=== PATIENT | female | born 1950 | race Caucasian/White ===

== ENCOUNTER → 2016-11-07 | Outpatient (CLI) | payer OTHER, BC ==
--- NOTE | 2016-11-07 12:45 | MAMMOGRAPHY REPORT ---
BILATERAL SCREENING MAMMOGRAM: 11/07/2016 CLINICAL HISTORY: Routine screening. Patient has no complaints. TECHNIQUE: Bilateral CC and MLO views were obtained. The exam was also evaluated with a computer a ided detection system (CAD). COMPARISON: Comparison is made to exams dated: 11/05/2015 mammogram, 08/29/2014 mammogram, 08/12/2013 mammogram, 08/01/2013 mammogram - [facility], 11/13/2011 mammogram, and 01/07/2010 m ammogram. BREAST COMPOSITION: The tissue of both breasts is almost entirely fatty. FINDINGS: No suspicious masses, calcifications, or areas of architectural distortion are noted in e ither breast. There has been no significant interval change compared to prior exams. Small benign a ppearing mass in the right lower inner quadrant is stable dating back to at least the 2009 exam. Sc attered benign-appearing right breast calcifications are stable. IMPRESSION: ACR BI-RADS CATEGORY 2: BENIGN There is no mammographic evidence of malignancy. A 1 year screening mammogram is recommended. The p atient will receive written notification of the results. Approximately 10% of breast cancers are not detected with mammography. A negative mammographic repor t should not delay biopsy if a clinically suggestive mass is present. Lisa Giron M.D. /:11/07/2016 12:18:41 Traveling Secretary: Briseida Grubbs [facility] letter sent: Normal 1/2 BI-RADS Code: ACR BI-RADS Category 2: Benign
== END | disposition home or self-care (01) ==
LOC: C.MAMM 10:23
PROVIDERS: ATTEND Obstetrics & Gynecology
DX: Z12.31 Encounter for screening mammogram for malignant neoplasm of breast (principal)

== ENCOUNTER → 2017-01-05 | Outpatient (CLI) | payer OTHER, BC ==
[2017-01-05 14:28] LABS: BASO % 0.9 %; BASO ABS # 0.04 K/uL (0-0.2); COMPLETE YES; EOS % 4.5 %; HEMATOCRIT 42.1 % (37-47); IG% 0.2 %; LYMPH % 24.6 %; LYMPH ABS # 1.04 K/uL (1.2-3.4); MEAN CELL VOLUME 91.7 fL (80-100); MEAN CORPUSCULAR HEMOGLOBIN 30.3 pg (25-34); MEAN PLATELET VOLUME 9.2 fL (7.4-10.4); MONO % 8.7 %; NEUT % 61.1 %; PLATELET COUNT 365 K/uL (130-400); RED BLOOD COUNT 4.59 M/uL (4.2-5.4); WHITE BLOOD COUNT 4.23 K/uL (4.8-10.8)
[2017-01-05 14:44] LABS: ALB/GLOB RATIO 1.1 (0.9-2); ALKALINE PHOSPHATASE 102 U/L (45-117); ALT/SGPT 22 U/L (12-78); AST/SGOT 13 U/L (15-37); BLOOD UREA NITROGEN 12 mg/dl (7-18); BUN/CREATININE RATIO 16.2 (10-20); CALCIUM 9.1 mg/dl (8.5-10.1); CARBON DIOXIDE 29 mmol/L (21-32); CHLORIDE 108 mmol/L (98-107); CREATININE 0.74 mg/dl (0.60-1.20); GLUCOSE 89 mg/dl (70-99); SODIUM 143 mmol/L (136-145)
[2017-01-05 14:55] LABS: CHOLESTEROL 188 mg/dl (0-200); CHOLESTEROL/HDL RATIO 2.5; HDL CHOLESTEROL 76 mg/dl; LDL CHOLESTEROL CALCULATED 84 mg/dl; TRIGLYCERIDES 138 mg/dl (0-150); VERY LOW DENSITY LIPOPROT CALC 28 mg/dl
== END ==
LOC: C.LABBC 09:57
PROVIDERS: ATTEND Internal Medicine Geriatric Medicine
DX: M85.80 Other specified disorders of bone density and structure, unspecified site (principal); E03.9 Hypothyroidism, unspecified; L80 Vitiligo; M19.90 Unspecified osteoarthritis, unspecified site; M54.16 Radiculopathy, lumbar region; E55.9 Vitamin D deficiency, unspecified

== ENCOUNTER → 2017-05-20 | Outpatient (CLI) | payer OTHER, BC | END | disposition home or self-care (01) | LOC: C.PAPS 17:18 | PROVIDERS: ATTEND Internal Medicine Geriatric Medicine | DX: Z01.419 Encounter for gynecological examination (general) (routine) without abnormal findings (principal) ==

== ENCOUNTER → 2017-07-06 | Outpatient (CLI) | payer OTHER, BC ==
--- NOTE | 2017-07-06 08:29 | DIAGNOSTIC IMAGING REPORT ---
AP PELVIS AND RIGHT HIP 2 VIEWS CLINICAL HISTORY: Right hip pain COMPARISON: None. DISCUSSION: The superior margin of the iliac crest is not included on the film. No fractures are visualized. There are no erosive or destructive changes. There are mild osteoarthritic changes. IMPRESSION: Mild osteoarthritic change. No fractures identified. No destructive lesions are evident. Electronically signed by: Yann Anand M.D. 07/06/2017 8:27 AM Dictated Date/Time: 07/06/2017 8:26 AM
== END | disposition home or self-care (01) ==
LOC: C.RDSM 08:09
PROVIDERS: ATTEND Physician Assistant
DX: M25.551 Pain in right hip (principal)

== ENCOUNTER → 2017-08-20 | Outpatient (CLI) | payer OTHER, BC ==
--- NOTE | 2017-08-20 15:22 | DIAGNOSTIC IMAGING REPORT ---
RIGHT KNEE 4 VIEWS; LEFT KNEE 4 VIEWS CLINICAL HISTORY: Bilateral knee pain. COMPARISON STUDY: Radiographs of both knees dated 02/09/2014. FINDINGS: An AP standing view of both knees, a tunnel view of both knees, a sunrise view of both knees, and lateral views of the right and left knee are obtained. The skeletal structures are osteopenic. No fracture is seen. Right knee: There is mild to moderate tricompartmental degenerative joint space narrowing, greatest at the patellofemoral articulation. There is bony sclerosis noted within the lateral aspect of the patellofemoral articulation. There are small patellar enthesophytes as well as large marginal osteophytes. No evidence of osteochondral defect is seen on the tunnel view. There is no joint effusion. The overlying soft tissues are within normal limits. Left knee: There is mild to moderate tricompartmental degenerative joint space narrowing, greatest at the patellofemoral articulation. There are large marginal osteophytes as well as tiny patellar enthesophytes. No osteochondral lesion is suggested on the tunnel image. No joint effusion is seen. The overlying soft tissues are within normal limits. IMPRESSION: Osteopenia and arthritic change as above. No acute bony abnormality is seen in either knee. Electronically signed by: Derek Astorga M.D. 08/20/2017 3:20 PM Dictated Date/Time: 08/20/2017 3:18 PM
== END | disposition home or self-care (01) ==
LOC: C.RDSM 14:49
PROVIDERS: ATTEND Physician Assistant
DX: M25.561 Pain in right knee (principal)

== ENCOUNTER 2020-06-29 06:45 | Observation (INO) ==
--- NOTE | 2020-05-25 15:59 | PAT Medication Instructions ---
Medication Instructions Date of Service May 25, 2020 Home Medications cholecalciferol (vitamin D3) 50 mcg (2,000 unit) capsule 2,000 unit PO PM clobetasol 0.05 % topical cream 1 applic TOP UD PRN levothyroxine 88 mcg tablet 88 mcg PO QAM lutein 10 mg tablet 20 mg PO PM ibuprofen 400 mg PO TID PRN ASK your surgeon for instructions ibuprofen 400 mg PO TID PRN STOP taking 2 weeks before surgery lutein 10 mg tablet 20 mg PO PM STOP taking 24 hours before surgery clobetasol 0.05 % topical cream 1 applic TOP UD PRN DO NOT take the morning of surgery cholecalciferol (vitamin D3) 50 mcg (2,000 unit) capsule 2,000 unit PO PM Take morning of surgery With a small sip of water, OTHERWISE NOTHING TO EAT OR DRINK AFTER MIDNIGHT: levothyroxine 88 mcg tablet 88 mcg PO QAM Other Notes If you have any questions please call us at [phone] or [phone] or [phone] or [phone]
--- NOTE | 2020-05-28 14:50 | Anesthesiology Consultation ---
Date of Service May 28, 2020 Assessment & Plan (1) Encounter for pre-operative examination: COVID Status: As of 05/28 assessment, patient denies travel to endemic area, known exposure/sick contacts, or symptoms of COVID19. Patient instructed that they and their household members must follow strict social distancing guidelines, wear a mask in public and avoid travel for 14 days prior to surgery. Preoperative COVID19 testing to be completed prior to surgery per surgeon's arrangements. Patient made aware to self-isolate as much as possible between COVID testing and surgery. Chart Review Chart Review: Acceptable Risk for Surgery and Patient NOT seen in Pre Admission Testing Teaching & Discussion Instructed NPO after midnight before surgery, except medications with 15 cc of w ater. Medication instructions provided according to the PAT guidelines. History Surgery Operation Date: 06/29/20 11:35 Proposed Procedures p Right Anterior Total Hip Arthroplasty - William Rivera DO Height/Weight Height: 5 ft 5.5 in Weight: 57.4 kg Allergies Allergy/AdvReac Type Severity Reaction Status Date / Time Sulfa (Sulfonamide Allergy Unknown Hives Verified 05/25/20 15:04 Antibiotics) Medications Home Medications Medication Instructions Recorded Confirmed Last Taken cholecalciferol (vitamin D3) 50 2,000 unit PO PM 01/12/20 05/25/20 03/31/20 mcg (2,000 unit) capsule clobetasol 0.05 % topical cream 1 applic TOP UD PRN 01/12/20 05/25/20 Unknown levothyroxine 88 mcg tablet 88 mcg PO QAM 01/12/20 05/25/20 04/02/20 06:35 lutein 10 mg tablet 20 mg PO PM 01/12/20 05/25/20 03/31/20 ibuprofen 400 mg PO TID PRN 03/26/20 05/25/20 03/29/20 Past Medical History Medical History Arthritis Hypothyroid Osteopenia Exercise / Class Metabolic Activity II 4-5 Yardwork/Stairs/Walk up hill (Denies any chest pain or SOB with 1 FOS, using cane for stability) Past Family History Family History Grandmother (Maternal) Diabetes Father Dementia Mother Colon, diverticulosis Family/Other Colorectal cancer Daughter Breast cancer, Onset Age: 30 Past Surgical History Surgical History History of colonoscopy History of oral surgery wisdom teeth History of tubal ligation Past Anesthesia History No Hx of Anesthesia Complications and No Family Hx of Anesthesia Complications History of PONV No Hx of PONV and No Hx of Motion Sickness Social History Smoking Status: Never smoker Do You Dip or Chew Tobacco: No Hx Alcohol Use: Yes Alcohol type: wine alcohol intake frequency: a few times a month Hx Substance Use: No substance use type: does not use Review of Systems Pt denies any recent chest pain, shortness of breath, palpitations, cough, fever, URI, or uncontrolled acid reflux. Physical Exam Vital Signs BP: 123/73 P: 79bpm SPO2: 97% RA T: 98.8 F R: 16 ENMT Mouth: + dental restorations (many caps); no chipped teeth and no loose teeth Thyromental Distance: > or= 3.5 Finger Breadths (3.5) Mallampati Class: I Neck normal visual inspection; neck extension not limited Respiratory normal respiratory effort Auscultation: lungs clear to auscultation bilaterally Cardiovascular Rate/Rhythm: regular rate and regular rhythm Heart Sounds: no murmur Extremities: no edema Testing Laboratory Results 05/28/20 15:05 05/28/20 15:05 PT 10.1 Seconds (9.0-12.0) 05/28/20 15:05 INR 1.0 (0.9-1.1) 05/28/20 15:05 APTT 26.9 Seconds (21.0-31.0) 05/28/20 15:05 Blood Type O Positive 05/28/20 15:05 Antibody Screen NEGATIVE 05/28/20 15:05 Electrocardiogram Date: 05/28/20 Findings: + NSR @ (69bpm) Chest X-Ray Date: 05/28/20 Findings: + NAD
--- NOTE | 2020-05-28 15:26 | XRay Report ---
XR chest Pre-admission PA/Lat CLINICAL HISTORY: pat COMPARISON STUDY: No previous studies for comparison. FINDINGS: The bones soft tissues and hemidiaphragms are normal. The cardiomediastinal silhouette is n ormal. The lungs are clear. The pulmonary vasculature is normal. IMPRESSION: Negative chest. ACT 112: Negative or not required by law. The above report was generated using voice recognition software. It may contain grammatical, syntax or spelling errors. Electronically signed by: Humberto Tyson M.D. 05/28/2020 3:25 PM
[2020-05-28 15:42] LABS: Basophils # (auto) 0.04 K/uL (0-0.2); Basophils % (auto) 0.6 %; Eosinophils # (auto) 0.15 K/uL (0-0.5); Eosinophils % (auto) 2.3 %; Hematocrit (blood only) 41.6 % (37-47); Hemoglobin 13.3 g/dL (12.0-16.0); Immature Granulocytes # (auto) 0.03 K/uL (0.00-0.02); Immature Granulocytes % (auto) 0.5 %; Lymphocytes # (auto) 1.42 K/uL (1.2-3.4); Lymphocytes % (auto) 21.5 %; Mean Corpuscular Hemoglobin 30.9 pg (25-34); Mean Corpuscular Volume 96.7 fL (80-100); Mean Platelet Volume 8.8 fL (7.4-10.4); Monocytes # (auto) 0.46 K/uL (0.11-0.59); Neutrophils # (auto) 4.49 K/uL (1.4-6.5); Neutrophils % (auto) 68.1 %; Platelet Count 448 K/uL (130-400); RDW Coefficient of Variation 13.9 % (11.5-14.5); RDW Standard Deviation 49.2 fL (36.4-46.3); White Blood Count 6.59 K/uL (4.8-10.8)
[2020-05-28 15:55] LABS: BUN Creatinine Ratio 25.2 (10-20); Calcium 9.7 mg/dl (8.5-10.1); Creatinine Clr Calc Pharmacy 73.1 ml/min; Est GFR (African American) 103.9; Est GFR (Non-African American) 89.6
[2020-05-28 15:56] LABS: Partial Thromboplastin Time 26.9 Seconds (21.0-31.0); Prothrombin Time 10.1 Seconds (9.0-12.0)
--- NOTE | 2020-05-28 17:58 | Electrocardiogram Report ---
Test Reason : Blood Pressure : / mmHG Vent. Rate : 069 BPM Atrial Rate : 069 BPM P-R Int : 146 ms QRS Dur : 092 ms QT Int : 394 ms P-R-T Axes : 068 073 054 degrees QTc Int : 422 ms Normal sinus rhythm Normal ECG No previous ECGs available Confirmed by Sulaiman Escalante ([id number]) on 05/28/2020 5:58:26 PM Referred By: William Rivera Confirmed By:Russell Escalante
--- NOTE | 2020-06-27 07:17 | History & Physical Report ---
Date of Service June 27, 2020 Assessment & Plan (1) Degenerative joint disease of right hip: We will proceed with a right anterior total hip arthroplasty. Postoperatively she will be started on aspirin for DVT prophylaxis and kept overnight in the hospital for postoperative medical management. She plans to use energy physical therapy upon discharge. Present on Admission?: Yes History of Present Illness Chief Complaint: Primary osteoarthritis of the right hip Primary Care Provider: Tahir Kelley DO Shari Dodson is a pleasant 70-year-old female who has been dealing with a 7-month history of increasing right hip and groin pain. X-rays and clinical examination have been diagnostic for advanced osteoarthritis of the right hip. After failing conservative treatment, she has elected to proceed with a right anterior total hip arthroplasty. Allergies Allergy/AdvReac Type Severity Reaction Status Date / Time Sulfa (Sulfonamide Allergy Unknown Hives Verified 06/18/20 08:50 Antibiotics) Home Medications Home Medications Medication Instructions Recorded Confirmed Type cholecalciferol (vitamin D3) 50 2,000 unit PO PM 01/12/20 06/18/20 History mcg (2,000 unit) capsule levothyroxine 88 mcg tablet 88 mcg PO QAM 01/12/20 06/18/20 History lutein 10 mg tablet 20 mg PO PM 01/12/20 06/18/20 History ibuprofen 400 mg PO TID PRN 03/26/20 06/18/20 History clobetasol 0.05 % topical cream 1 applic TOP .COMPLEX PRN #30 g 06/18/20 06/18/20 Rx Past Med/Surg History Medical History Arthritis Chronic osteoarthritis Hypothyroid Lichen sclerosus et atrophicus Osteopenia Tubular adenoma of colon Surgical History History of colonoscopy History of oral surgery wisdom teeth History of tubal ligation Family History Grandmother (Maternal) Diabetes Father Dementia Mother Colon, diverticulosis Family/Other Colorectal cancer Daughter Breast cancer, Onset Age: 30 Social History Smoking Status: Never smoker Second Hand Exposure: No; Hx Alcohol Use: Yes Alcohol type: wine Alcohol Intake Frequency Comment: socially Hx Substance Use: No Preferred Language: Honduran Communication Ability: Effective Senior Mortgage Loan Processor Required: No Beliefs That Will Affect Care: None Current Living Situation: Spouse Feels Safe at Home: Yes Review of Systems Review of Systems: All systems reviewed & are unremarkable except as noted in HPI & below Physical Exam Constitutional: WD/WN, vitals as above Eyes: PERRL, conjunctivae normal, anicteric sclerae ENMT: external ear and nose normal, oropharynx normal Neck: trachea midline, no thyromegaly Respiratory: normal respiratory effort Cardiovascular: RRR, no murmur, no edema Gastrointestinal (Abdomen): normal bowel sounds, soft, nontender, no hepatosplenomegaly Musculoskeletal: Physical examination of the right hip reveals decreased range of motion with flexion, internal and external rotation. There is significant groin pain with forced internal rotation of the hip his leg lengths are essentially equal. Psychiatric: A+Ox3, euthymic affect Results & Data Results & Data ([facility]) Diagnostic Findings Radiographs of the right hip and pelvis demonstrate advanced osteoarthritis with joint space narrowing osteophyte formation and [id number] articulation. PG Care Time/CCT Total # of Minutes Spent Total Time Spent with Patient: Total time spent is greater than 50% in coordination of care (as documented) at patient's floor/unit and/or counseling patient: Coding Level of Care Code 55932 Initial Inpt Care Lvl 2 Diagnoses Degenerative joint disease of right hip M16.11
[2020-06-27 08:02] LABS: SARS CoV2 RNA (COVID-19) NOT DETECTED (NOT DETECTED)
[~2020-06-29 06:45] MED LIST: ACETAMINOPHEN 500 MG TAB PO SCH; CEFAZOLIN 1000MG 1,000 MG/7.5 ML SYR IV SCH; FAMOTIDINE 20 MG TAB PO SCH; GABAPENTIN 300 MG CAP PO SCH; LR 500ML BOLUS, THEN 15ML/HR IV SCH; LR 60ML/HR IV SCH; ROPIVACAINE 0.5% HCL/PF 150 MG, BUPIVACAINE 0.5% MPF 30 ML, EPINEPHrine 30MG/30ML (OR U... INFIL SCH; TRANEXAMIC ACID 1,000 MG **IV Intra-op IV SCH; TRANEXAMIC ACID 1,000 MG **IV Pre-op IV SCH; dexAMETHasone 4 MG TAB PO SCH
[2020-06-29] MEDS ORDERED: BUPIVACAINE 0.5 % 5 MG/1 ML PF 10ML VIAL ONE (07:11)
[2020-06-29] MEDS ORDERED: ONDANSETRON INJ 2 MG/ML 2 ML VIAL ONE (08:30)
[2020-06-29] MEDS ORDERED: LIDOCAINE HCL 2% 2 ML VIAL/AMP(20MG/ML) INFIL ONE (08:30)
[2020-06-29] MEDS ORDERED: PROPOFOL IV EMULSION 10 MG/ML 20 ML VIAL IV ONE (08:30)
--- NOTE | 2020-06-29 08:30 | History & Physical Bridge Note ---
Date of Service June 29, 2020 History & Physical Bridge Note I have examined the patient, reviewed the History & Physical and in the interval since the performance of the History & Physical I have noted the following changes of clinical significance: no changes noted
[2020-06-29] MEDS ORDERED: fentaNYL citrate 100 MCG/2 ML VIAL ONE ×2 (08:31→10:37)
[2020-06-29] MEDS ORDERED: MIDAZOLAM HCL 1 MG/ML 2ML VIAL ONE (08:31)
[2020-06-29] MEDS ORDERED: ORTHO JOINT ANESTHETIC ONE (08:41)
[2020-06-29] MEDS ORDERED: ATROPINE SULFATE 0.1 MG/ML 10ML SYR IV PRN (08:44)
[2020-06-29] MEDS ORDERED: fentaNYL citrate 100 MCG/2 ML VIAL IV PRN (08:44)
[2020-06-29] MEDS ORDERED: ONDANSETRON INJ 2 MG/ML 2 ML VIAL IV PRN ×2 (08:44→13:06)
[2020-06-29] MEDS ORDERED: ePHEDrine sulfate 50 MG/ML AMP IV PRN (08:44)
[2020-06-29] MEDS ORDERED: DEXAMETHASONE SOD INJ 4 MG/ML VIAL ONE (10:23)
--- NOTE | 2020-06-29 11:48 | Operative Report ---
PG Post Operative Report Pre & Post Diagnosis Operation Date: 06/29/20 09:20 Pre-Op Diagnosis: Degenerative Joint Disease, Right Hip Post-Op Diagnosis: Degenerative Joint Disease, Right Hip I identified the patient and participated in the time-out.: Yes Procedure Operation Date: 06/29/20 09:20 Actual Procedures p Right Anterior Total Hip Arthroplasty(Right) - William Rivera DO Surgeon William Rivera DO Dry Wall Plasterer Morgan Minor PAC Estimated Blood Loss 250 Findings Consistent with Post-Op Diagnosis Specimens Right femoral head Complications none Disposition Disposition: Recovery Room Indications Sabrina is a pleasant 70-year-old female who is been dealing with chronic increasing right hip and groin pain. X-rays and clinical examination have been diagnostic for advanced osteoarthritis of the right hip. After failing conservative treatment, she has elected to proceed with a right anterior total hip arthroplasty. Description of Procedure Implants used I used a Biomet Taperloc total hip arthroplasty system with a size 6 standard offset Taperloc stem, a 48 mm G7 cup with a 25mm screw, an E1 polyethylene liner, a 32 mm ceramic head with a +6 neck. Sabrina arrived at the hospital for the above procedure. She was seen in the preoperative holding area and the operative extremity was identified and signed. She was given a spinal anesthetic, a preoperative antibiotic, and TXA. She was then taken back to the operating room and laid on the table in the supine position. She was given basic sedation. The spinal anesthetic did not take effect and she was put under general. The operative leg was secured to a Puristst leg positioner. The hip was then prepped and draped in sterile fashion. A timeout was done and the patient and the operative extremity was properly identified. An anterior approach was used. Dissection was taken down through the fascia and the tensor muscle belly was retracted laterally and the rectus was retracted medially. The circumflex vessels were identified and ligated. The capsule was then incised and tagged for later repair. The femoral neck was then cut and the femoral head was removed. The acetabulum was exposed. Time was spent doing a complete circumferential labral release. Sequential reaming of the acetabulum up to a size 47 reamer was done. Final reamings were done under fluoroscopy to ensure appropriate version. A Biomet 48 mm G7 cup was then impacted into place. A single 25 mm screw was placed. The E1 polyethylene liner was then snapped into place. Surrounding soft tissues were then injected with 100 cc of an orthopedic pain control cocktail. The proximal femur was then exposed. Sequential broaching up to a size 6 broach was done. Off that broach a size 32 head with a +6 neck was trialed. The hip was reduced and fluoroscopic images showed anatomic alignment of the implants in acceptable length. The broach was removed. The final size 6 Taperloc stem was then impacted into place. A ceramic 32 mm head with a +6 neck was then impacted onto the stem and the hip was reduced. Final fluoroscopic images showed anatomic alignment of the hip. The capsule was then closed with #1 Vicryl suture. A dilute betadyne lavage was then done for 3 minutes. The joint was then irrigated with normal saline solution. The fascia was closed with #1 PDS suture. Skin was closed with 2-0 Vicryl, tiffany, and a Silverlon dressing. She was then transferred to a hospital bed and taken to the post anesthesia care unit in stable condition. She tolerated the procedure well. William Montenegro PA-C, was present for the entire procedure. He was critical for patient positioning, prepping, draping, retraction exposure, wound closure and application of sterile dressing. I attest to the content of the Intraoperative Record and any orders documented therein. Any exceptions are noted below.
[2020-06-29] MEDS ORDERED: HYDROmorphone INJ 0.5 MG/0.5 ML SYR ONE (12:06)
--- NOTE | 2020-06-29 12:22 | XRay Report ---
AP PELVIS, CROSSTABLE LATERAL RIGHT HIP History: Right total hip arthroplasty. Degenerative arthritis. Postop. FINDINGS: The patient is status post a right total hip arthroplasty. The hardware is intact. No fract ure or dislocation. Skin tiffany are in place. Approximately 2 cm deep to the incision site within th e lateral soft tissues of the right hip there is a 2 mm metallic foreign body. This could represent a needle tip. IMPRESSION: Right total hip arthroplasty. Approximately 2 cm deep to the incision site within the lateral soft ti ssues of the right hip there is a 2 mm metallic foreign body. This could represent a needle tip. This finding was called/faxed to the referring physician following dictation. ACT 112: Negative or not required by law. Electronically signed by: Yeyo Bustamante M.D. 06/29/2020 12:21 PM
--- NOTE | 2020-06-29 12:25 | Fluoroscopy Report ---
FL hip RT 2-3V CLINICAL HISTORY: Right hip arthroplasty. COMPARISON STUDY: Pelvis and right hip radiographs May 07, 2020. FLUOROSCOPY TIME: 20 seconds. FLUOROSCOPIC IMAGES: 2 FINDINGS: Fluoroscopy was provided during total right hip arthroplasty. Hardware is intact. There is an acetabular screw. No fractures are defined by fluoroscopy. There are no unexpected radiopaque fore ign bodies. IMPRESSION: Fluoroscopy provided during total right hip arthroplasty. ACT 112: Negative or not required by law. Electronically signed by: Salvatore Lenz M.D. 06/29/2020 12:23 PM
--- NOTE | 2020-06-29 12:46 | Anesthesiology Progress Note ---
Date of Service June 29, 2020 Anesthesia Post Procedure Vital Signs Vital Signs: Temp Pulse Pulse Resp BP BP Pulse Ox 06/29/20 12:30 98.1 F 80 20 123/64 99 06/29/20 12:20 83 15 112/66 100 06/29/20 12:10 81 13 121/64 100 06/29/20 12:03 98.8 F 85 15 119/63 100 06/29/20 08:19 97.9 F 78 20 140/80 97 06/29/20 07:41 98.2 F 82 20 140/77 98 Pain Intensity Right Hip: Pain Intensity: 4 Transfer of Care Handoff Completed per policy Notes Mental Status: alert / awake / arousable and participated in evaluation Patient Amnestic to Procedure: Yes Nausea / Vomiting: adequately controlled Pain: adequately controlled Airway Patency, RR, SpO2: stable & adequate BP & HR: stable & adequate Hydration State: stable & adequate Anesthetic Complications: no major complications apparent and Pt Satisfied with anesthetic care
[2020-06-29] MEDS ORDERED: MAGNESIUM HYDROXIDE SUSP 30 ML UDC PO PRN (13:06)
[2020-06-29] MEDS ORDERED: EMBELINE E CREAM 0.05% 15 GM EXT PRN (13:06)
[2020-06-29] MEDS ORDERED: bisacodyL 10 MG SUPP PR PRN (13:06)
[2020-06-29] MEDS ORDERED: METOCLOPRAMIDE HCL INJ 5 MG/ML 2 ML VIAL IV PRN (13:06)
[2020-06-29] MEDS ORDERED: NALOXONE HCL 0.4 MG/1 ML VIAL/CARP IV PRN (13:06)
[2020-06-29] MEDS ORDERED: HYDROmorphone INJ 0.5 MG/0.5 ML SYR IV PRN (13:06)
[2020-06-29] MEDS ORDERED: OXYCODONE HCL IR 5 MG TAB (IMMEDIATE RELEASE) PO PRN (13:06)
[2020-06-29] MEDS: KETOROLAC TROMETHAMINE 15 MG/ML VIAL IV SCH ×2 (14:14→20:34)
[2020-06-29] MEDS: ACETAMINOPHEN 500 MG TAB PO SCH ×2 (14:14→21:07)
[2020-06-29] MEDS: SODIUM CHLORIDE 0.9% 1000ML 1,000 ML IV SCH ×2 (14:22→23:39)
[2020-06-29] MEDS: CEFAZOLIN 1000MG 1,000 MG/7.5 ML SYR IV SCH (16:56)
[2020-06-29] MEDS: ASPIRIN 81 MG ECTAB PO SCH (20:34)
[2020-06-29] MEDS: DOCUSATE SODIUM 100 MG CAP PO SCH (20:34)
[2020-06-29] MEDS ORDERED: CHOLECALCIFEROL 1,000 UNITS 25 MCG TAB PO SCH (21:00)
[2020-06-29] MEDS ORDERED: SENNA 8.6 MG TAB PO SCH (21:00)
[2020-06-29] MEDS ORDERED: NON-FORMULARY MEDICATION (Lutein 20 MG) PO SCH (21:00)
[2020-06-30] MEDS: KETOROLAC TROMETHAMINE 15 MG/ML VIAL IV SCH ×2 (01:45→09:01)
[2020-06-30] MEDS: CEFAZOLIN 1000MG 1,000 MG/7.5 ML SYR IV SCH (01:46)
[2020-06-30] MEDS: ACETAMINOPHEN 500 MG TAB PO SCH (05:39)
[2020-06-30 05:49] LABS: Hematocrit (blood only) 31.4 % (37-47); Hemoglobin 10.1 g/dL (12.0-16.0); Immature Granulocytes # (auto) 0.02 K/uL (0.00-0.02); Immature Granulocytes % (auto) 0.2 %; Lymphocytes # (auto) 0.91 K/uL (1.2-3.4); Lymphocytes % (auto) 7.7 %; Mean Corpuscular Hemoglobin 31.1 pg (25-34); Mean Corpuscular Hgb Conc 32.2 g/dL (32-36); Mean Corpuscular Volume 96.6 fL (80-100); Mean Platelet Volume 8.6 fL (7.4-10.4); Monocytes # (auto) 0.91 K/uL (0.11-0.59); Monocytes % (auto) 7.7 %; Neutrophils # (auto) 10.01 K/uL (1.4-6.5); Neutrophils % (auto) 84.4 %; Platelet Count 366 K/uL (130-400); RDW Coefficient of Variation 13.9 % (11.5-14.5); RDW Standard Deviation 49.2 fL (36.4-46.3); Red Blood Count 3.25 M/uL (4.2-5.4); White Blood Count 11.85 K/uL (4.8-10.8)
[2020-06-30 06:17] LABS: BUN Creatinine Ratio 24.5 (10-20); Calcium 8.5 mg/dl (8.5-10.1); Creatinine Clr Calc Pharmacy 76.3 ml/min; Est GFR (Non-African American) 90.6; Potassium 4.1 mmol/L (3.5-5.1)
[2020-06-30] MEDS ORDERED: LEVOTHYROXINE SODIUM 88 MCG TABLET PO SCH (06:30)
--- NOTE | 2020-06-30 07:29 | Orthopedic Progress Note ---
Date of Service June 30, 2020 Assessment & Plan (1) Status post right hip replacement: Overall she is doing very well. She is not having much pain in the right hip. She will be seen by physical therapy today for ambulation and range of motion exercises. She can be discharged home later today. She is on aspirin for DVT prophylaxis. She will follow-up with orthopedics in 2 weeks. Present on Admission?: Yes Admission and Anticipated Discharge Date Admission Date: June 29, 2020 Kisha Bennett was seen and examined at bedside this morning. Overall she is doing very well. She is not having much pain in the right hip. She has been up and ambulating to the hallways. She is happy with her progress so far and has no c omplaints. Physical Exam Musculoskeletal: On physical examination of the right hip, the Silverlon dressing is clean and dry. Her leg lengths are equal. She has active dorsiflexion and plantarflexion of her right ankle. Results & Data ([facility]) Vital Signs (Past 12 Hours) Vital Signs Temp Pulse Resp BP Pulse Ox 06/30/20 04:00 36.7 C 77 14 94/57 L 98 06/29/20 23:46 36.7 C 74 14 93/53 L 96 Laboratory Results H & H 05/28/20 06/30/20 Range/Units 15:05 05:38 Hgb 13.3 10.1 L (12.0-16.0) g/dL Hct 41.6 31.4 L (37-47) % Coagulation 05/28/20 Range/Units 15:05 INR 1.0 (0.9-1.1) Diagnostic Findings Postoperative x-rays of the right hip show the prosthesis to be in anatomic alignment without any evidence of fracture, dislocation, or loosening. I saw the small metallic itago that was pointed out on the x-ray images. It does not appear to be consequential in any way. I am not sure if it is truly a loose body. We had a full sponge and needle count after the operation. The possible finding is not concerning. PG Care Time/CCT Total # of Minutes Spent Total Time Spent with Patient: Total time spent is greater than 50% in coordination of care (as documented) at patient's floor/unit and/or counseling patient: Coding Level of Care Code None Diagnoses Status post right hip replacement Z96.641
--- NOTE | 2020-06-30 07:30 | Discharge Summary ---
Date of Service June 30, 2020 Admission HPI Per Admitting Provider Shari Dodson is a pleasant 70-year-old female who has been dealing with a 7-month history of increasing right hip and groin pain. X-rays and clinical examination have been diagnostic for advanced osteoarthritis of the right hip. After failing conservative treatment, she has elected to proceed with a right anterior total hip arthroplasty. Principal Diagnosis Right hip replacement Discharge Data Allergies Allergy/AdvReac Type Severity Reaction Status Date / Time Sulfa (Sulfonamide Allergy Unknown Hives Verified 06/29/20 07:11 Antibiotics) Consultations 06/30/20 08:00 Consult Case Management - Discharge Planning Routine Procedures Performed Operation Date: 06/29/20 09:20 Actual Procedures p Right Anterior Total Hip Arthroplasty(Right) - William Rivera DO Ordered Studies 06/29/20 09:00 FL fluoroscopy <1hr Routine FL hip RT 2-3V Routine Hospital Course (1) Status post right hip replacement: On June 29, 2020 Sabrina arrived at [facility] and underwent a right hip replacement without complication. She had a general anesthetic. Postoperatively she was started on aspirin for DVT prophylaxis and transferred to the general orthopedic floors. Her hospital course was uneventful. On postop day #1 her H&H was stable and her pain was well controlled. She was able to participate well with physical therapy doing ambulation and range of motion exercises. She was then discharged to home. She will follow-up with orthopedics in 2 weeks. Total Time Total Time Spent Total Time Spent (In Minutes): 20 Discharge Plan Discharge Items Patient Disposition: Home - Home Health Services Reason For Visit: DJD Hip Right Discharge Diagnosis: Right hip replacement Activity: As commented below Non-emergency contact: Surgeon Call non-emergency contact if: your wound has increased redness and your wound has increased drainage Follow-up/Referrals: Tahir Kelley DO [Primary Care Provider] - Diet: Regular Addtl Attending Provider Instructions: Activity and Therapy Recommendations: * If you are using [facility] then therapy will be provided at your home until they feel you have accomplished all of your goals. * If you are using [facility] then Physical Therapy will be provided until they feel you are ready to start Outpatient Physical Therapy. * If you are not using home therapy then Outpatient Physical Therapy should start about 3-5 days from your day of surgery. Therapy will last about 6-10 weeks * You were shown a series of exercises in the hospital. Do these exercises three times each day including the exercises you were shown in physical therapy. * Get up and walk several times each day.~ For the first four weeks, try not to stand or walk for more than one hour at a time. If you do stand or walk for more than one hour, you will not hurt anything, but your leg will likely swell.~~ * As you feel comfortable, you may change from the walker or crutches to a cane and~then to independent walking. Medications: * Narcotic You will likely be sent home from the hospital with a prescription for the narcotic pain medication that worked best throughout your stay. * Aspirin Most patients will be required to take Aspirin 81mg twice a day for 6 weeks after surgery. This is obtained [id number] and a prescription is not necessary. * Other medications may be prescribed for specific circumstances. If you have any questions, please call the office at . * Resume previous home medications unless otherwise instructed TEDs/Elastic Stockings: The white elastic stockings help limit swelling and prevent blood clots from forming in your legs. The more you wear them, the more they work. Wear them for six weeks. Dressing Care: Leave the Silverlon dressing in place for 7 days. After 7 days you may remove the dressing. If the incision is not draining then you may leave the tiffany open to air. If there is a little bit of drainage or if the tiffany are getting stuck on your clothing then cover the incision with a dry dressing. The tiffany will be removed at your 2 week follow-up appointment. Showering: You may shower with the Silverlon dressing in place. Do not let the shower spray hit the dressing directly. Pat the Silverlon dressing dry. If the dressing becomes wet underneath, then simply remove the dressing. Keep the incision dry until you are 7 days out from the day of surgery. After 7 days you may remove the Silverlon dressing and shower with the tiffany exposed. Let soapy water run over the tiffany and pat them dry. Do not scrub or soak the incision. Things To Watch For: * Drainage from the incision site that occurs more than one week after your surgery. * Increased redness at the incision site. * Fever above 102 degrees Fahrenheit. * Unusual chest pain or shortness of breath. * Call [facility] at with any of the above p juanphan Follow-Up Visit: Follow-up with Dr. Rivera's PA (William Montenegro) 2-3 weeks after your day of surgery. He will remove your tiffany and answer any questions. If you have any additional questions or concerns, Dr Rivera is usually in the office at the same time and will be available An appointment was probably scheduled when you signed-up for surgery in the office. If you have any questions call Office Instructions: More detailed instructions as well as Frequently Asked Questions were provided in a folder by our office when you signed-up for surgery. Please review these instructions when you get home. If you have any further questions or concerns, please feel free to call the office at [phone] Pending Studies at Discharge: No Stand-Alone Forms: My [facility] [place], Smoking Cessation Medications and DC Order Prescriptions: New tramadol 50 mg tablet 50 mg PO Q6H PRN (Reason: pain) Qty: 30 RF: 0 aspirin 81 mg Tablet,Delayed Release (Dr/Ec) 81 mg PO BID 42 Days Qty: 0 RF: 0 Continued lutein 10 mg tablet 20 mg PO PM RF: 0 cholecalciferol (vitamin D3) 50 mcg (2,000 unit) capsule 2,000 unit PO PM RF: 0 levothyroxine 88 mcg tablet 88 mcg PO QAM RF: 0 clobetasol [Temovate] 0.05 % cream 1 applic TOP .COMPLEX PRN (Reason: Skin Irritation) Qty: 30 RF: 1 ibuprofen 400 mg Tablet 400 mg PO TID PRN (Reason: Pain) RF: 0 Discharge Orders: Discharge Order (Routine); Ordered 06/30/20 Ordered By: William Rivera Admission Data Admit Date/Time: 06/29/20 11:50 Attending Provider: William Rivera Admit Provider: William Rivera Primary Care Provider: Tahir Kelley Coding Level of Care Code D/C Day Management <30 mins Diagnoses Status post right hip replacement Z96.641
[2020-06-30] MEDS ORDERED: dexAMETHasone 4 MG TAB PO SCH (08:00)
[2020-06-30] MEDS ORDERED: MULTIVITAMIN TAB PO SCH (09:00)
[2020-06-30] MEDS: DOCUSATE SODIUM 100 MG CAP PO SCH (09:00)
[2020-06-30] MEDS: ASPIRIN 81 MG ECTAB PO SCH (09:01)
== END 2020-06-30 11:27 | disposition home health service (06) ==
LOC: 3E 06:45 → ASU 06:45

== ENCOUNTER 2022-12-08 07:21 | Observation (INO) ==
--- NOTE | 2022-11-07 16:14 | PAT Medication Instructions ---
Medication Instructions Date of Service November 07, 2022 Home Medications Medication Instructions Recorded methylprednisolone 4 mg tablets in 4 mg PO UD #21 ea 08/07/21 a dose pack (Medrol (Talon)) clobetasol 0.05 % topical cream 1 applic topical .COMPLEX PRN Skin 02/05/22 Irritation #30 grams amoxicillin 500 mg capsule 2,000 mg PO ONCE #8 caps 04/16/22 cholecalciferol (vitamin D3) 50 mcg (2,000 unit) capsule 2,000 unit PO PM levothyroxine 88 mcg tablet 88 mcg PO QAM lutein 10 mg tablet 20 mg PO PM ibuprofen 400 mg tablet 400 mg PO TID PRN methylprednisolone 4 mg tablets in a dose pack (Medrol (Talon)) 4 mg PO UD clobetasol 0.05 % topical cream 1 applic topical .COMPLEX PRN amoxicillin 500 mg capsule 2,000 mg PO ONCE alendronate 70 mg tablet 70 mg PO WK cyanocobalamin (vitamin B-12) 500 mcg tablet 500 mcg PO PM Continue as directed methylprednisolone 4 mg tablets in a dose pack (Medrol (Talon)) 4 mg PO UD amoxicillin 500 mg capsule 2,000 mg PO ONCE alendronate 70 mg tablet 70 mg PO WK (do NOT take day of surgery) ASK your surgeon for instructions ibuprofen 400 mg tablet 400 mg PO TID PRN STOP taking 2 weeks before surgery lutein 10 mg tablet 20 mg PO PM STOP taking 24 hours before surgery clobetasol 0.05 % topical cream 1 applic topical .COMPLEX PRN Take morning of surgery With a small sip of water, OTHERWISE NOTHING TO EAT OR DRINK AFTER MIDNIGHT: levothyroxine 88 mcg tablet 88 mcg PO QAM Take evening before surgery cholecalciferol (vitamin D3) 50 mcg (2,000 unit) capsule 2,000 unit PO PM cyanocobalamin (vitamin B-12) 500 mcg tablet 500 mcg PO PM Other Notes If you have any questions please call us at [phone] or [phone] or [phone] or [phone]
--- NOTE | 2022-11-14 09:26 | Anesthesiology Consultation ---
Date of Service November 14, 2022 Assessment & Plan (1) Encounter for pre-operative examination: - acceptable to proceed pending booking change to overnight. - R MESFIN 06/2020: pt able to move legs in OR, converted to GA: LMA#4. SAB L3-L4 2 attempts. - Outpatient joint assessment: Case discussed with Dr. Mccloud who advised patient is not acceptable candidate for outpatient joint program from anesthesia standpoint, home support would be her who is also 72 y/o per pt. Surgeon 's office made aware. Chart Review Chart Review: Acceptable Risk for Surgery and Patient seen in Pre Admission Testing Teaching & Discussion Pre-Anesthesia Teaching/Discussion Notes: Instructed NPO after midnight before surgery, except medications with 15 cc of water. Medication instructions provided according to the PAT guidelines. History Surgery Operation Date: 12/08/22 07:00 Proposed Procedures p Right Total Knee Arthroplasty - William Rivera, Height/Weight Height: 5 ft 5.5 in Weight: 57.8 kg Allergies Allergy/AdvReac Type Severity Reaction Status Date / Time Sulfa (Sulfonamide Allergy Unknown Hives Verified 11/07/22 12:18 Antibiotics) Medications Home Medications Medication Instructions Recorded Confirmed Last Taken cholecalciferol (vitamin D3) 50 2,000 unit PO PM 01/12/20 11/07/22 06/27/20 21:00 mcg (2,000 unit) capsule levothyroxine 88 mcg tablet 88 mcg PO QAM 01/12/20 11/07/22 06/29/20 05:30 lutein 10 mg tablet 20 mg PO PM 01/12/20 11/07/22 06/22/20 ibuprofen 400 mg tablet 400 mg PO TID PRN Pain 03/26/20 11/07/22 06/14/20 methylprednisolone 4 mg tablets in 4 mg PO UD #21 ea 08/07/21 11/07/22 Unknown a dose pack (Medrol (Talon)) clobetasol 0.05 % topical cream 1 applic topical .COMPLEX PRN Skin 02/05/22 11/07/22 Unknown Irritation #30 grams amoxicillin 500 mg capsule 2,000 mg PO ONCE #8 caps 04/16/22 11/07/22 Unknown alendronate 70 mg tablet 70 mg PO WK 11/07/22 11/07/22 Unknown cyanocobalamin (vitamin B-12) 500 500 mcg PO PM 11/07/22 11/07/22 Unknown mcg tablet Past Medical History Medical History (Updated 11/14/22 @ 09:32 by Trinidad Cordon PA-C) History of COVID-19 Jun 2022 > very mild > symptoms fully resolved Hypothyroid Lichen sclerosus et atrophicus 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 Exercise / Class Metabolic Activity II 4-5 Yardwork/Stairs/Walk up hill (denies chest discomfort or shortness of breath with 1 FOS) Past Family History Family History Grandmother (Maternal) Diabetes Father Dementia Mother Colon, diverticulosis Family/Other Colorectal cancer Daughter Breast cancer, Onset Age: 30 Past Surgical History Surgical History (Updated 11/14/22 @ 09:38 by Trinidad Cordon PA-C) History of colonoscopy History of oral surgery wisdom teeth History of tooth extraction with implant History of tubal ligation Status post right hip replacement (~06/2020) pt able to move legs in OR, converted to GA: LMA#4. SAB L3-L4 2 attempts. Past Anesthesia History No Hx of Anesthesia Complications and No Family Hx of Anesthesia Complications History of PONV No Hx of PONV and No Hx of Motion Sickness Social History Smoking Status: Never smoker Do You Dip or Chew Tobacco: No Hx Alcohol Use: Yes Alcohol type: wine alcohol intake frequency: a few times a month Hx Substance Use: No substance use type: does not use Review of Systems Occasional snoring, denies witnessed apneas. Patient denies chest pain, shortness of breath, dyspnea on exertion, reflux, fever, chills, cough, wheezing, or palpitations. Physical Exam Vital Signs Vitals BP 119/69 P 83 TEMP 98.4 SP02 97% on RA RESP 18 Physical Full cervical extension range of motion without pain TMD 3.5 finger breadths Mallampati Score 1 Dentition: implant lower left back, several crowns; denies chipped or loose teeth, bridges Lungs: normal respiratory effort. Clear throughout to auscultation, no adventitious breath sounds Cardiac: regular rate and rhythm, no murmurs noted Carotid arteries: negative bruit bilat Lab Results Anesthesia Preop Results Results Anesthesia Widget: WBC 5.38 K/ul (4.8-10.8) 11/14/22 Hgb 14.2 g/dl (12.0-16.0) 11/14/22 Hct 43.9 % (34.1-44.9) 11/14/22 Plt 412 K/uL (130-400) H 11/14/22 Na 141 mmol/L (136-145) 11/14/22 K 5.0 mmol/L (3.5-5.1) 11/14/22 Cl 108 mmol/L (98-107) H 11/14/22 CO2 30 mmol/L (21-32) 11/14/22 BUN 19 mg/dl (6-23) 11/14/22 Creat 0.64 mg/dl (0.6-1.2) 11/14/22 Glucose Level 101 mg/dl (70-99(Fasting)) H 11/14/22 PT 10.3 Seconds (9.0-12.0) 11/14/22 PTT 26.3 Seconds (21.0-31.0) 11/14/22 INR 1.0 (0.9-1.1) 11/14/22 TSH 2.086 uIu/ml (0.300-4.500) 11/14/22 Blood Type O Positive 11/14/22 Antibody Screen NEGATIVE 11/14/22 Testing Electrocardiogram Date: 11/14/22 NSR, rate 74 bpm Chest X-Ray Date: 11/14/22 No lines and tubes are seen. The cardiomediastinal silhouette is normal. The lungs are clear. No evidence of pleural effusion or pneumothorax. IMPRESSION: No acute chest disease. COVID-19 Risk Screen Screening Information COVID-19 Screen Date: 11/14/22 Exposure 21 Days Family/Household +COVID Last 21 Days: No Exposure 10 Days Any COVID Exposure Last 10 Days: No Symptoms Last 10 Days Experienced COVID Sx Last 10 Days: No + COVID 0-90 Days COVID + in Last 0-90 Days: No
--- NOTE | 2022-12-08 06:27 | History & Physical Report ---
Date of Service December 08, 2022 Assessment & Plan (1) Localized osteoarthritis of right knee: We will proceed with a right total knee arthroplasty. Postoperatively she will be started on aspirin for DVT prophylaxis and kept overnight in the hospital for postoperative medical management. [facility]. History of Present Illness Chief Complaint: Osteoarthritis of the right knee. Primary Care Provider: Tahir KelleyDO Bennett is a pleasant 72-year-old female, who has been dealing with chronic worsening bilateral knee pain. The right is worse than left. It hurts when she walks long distance. It hurts when she goes up and down stairs. She has a lot of anterior knee pain. She is really struggling with it. She states that she has to go downstairs backwards. She has done physical therapy. She has had injections. She is taking antiinflammatories, all without relief. After failing conservative treatment, she has elected to proceed with a right total knee arthroplasty. Allergies Allergy/AdvReac Type Severity Reaction Status Date / Time Sulfa (Sulfonamide Allergy Unknown Hives Verified 11/07/22 12:18 Antibiotics) Home Medications Medication Instructions Recorded Confirmed Type cholecalciferol (vitamin D3) 50 2,000 unit PO PM 01/12/20 11/07/22 History mcg (2,000 unit) capsule levothyroxine 88 mcg tablet 88 mcg PO QAM 01/12/20 11/07/22 History lutein 10 mg tablet 20 mg PO PM 01/12/20 11/07/22 History ibuprofen 400 mg tablet 400 mg PO TID PRN Pain 03/26/20 11/07/22 History methylprednisolone 4 mg tablets in 4 mg PO UD #21 ea 08/07/21 11/07/22 Rx a dose pack (Medrol (Talon)) clobetasol 0.05 % topical cream 1 applic topical .COMPLEX PRN Skin 02/05/22 11/07/22 Rx Irritation #30 grams amoxicillin 500 mg capsule 2,000 mg PO ONCE #8 caps 04/16/22 11/07/22 Rx alendronate 70 mg tablet 70 mg PO WK 11/07/22 11/07/22 History cyanocobalamin (vitamin B-12) 500 500 mcg PO PM 11/07/22 11/07/22 History mcg tablet Past Med/Surg History Medical History History of COVID-19 Jun 2022 > very mild > symptoms fully resolved Hypothyroid Lichen sclerosus et atrophicus 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 SAB L3-L4 2 attempts. Family History Grandmother (Maternal) Diabetes Father Dementia Mother Colon, diverticulosis Family/Other Colorectal cancer Daughter Breast cancer, Onset Age: 30 Social History Smoking Status: Never smoker Second Hand Exposure: Yes (as kid, parents smoked); Hx Alcohol Use: Yes Alcohol type: wine Alcohol Intake Frequency Comment: socially Hx Substance Use: No Preferred Language: [place] Communication Ability: Effective Visual Impairment: No Limitations Manager Trainee Required: No Beliefs That Will Affect Care: None marital status: Current Living Situation: Spouse Feels Safe at Home: Yes Assistive Devices: Glasses Review of Systems All systems reviewed & are unremarkable except as noted in HPI & below. Physical Exam On physical examination of the right knee, she has good range of motion of 0 to 120 degrees. No instability. Pain over the joint lines and in the patellofemoral region.. Constitutional WD/WN, vitals as above Eyes PERRL, conjunctivae normal, anicteric sclerae ENMT external ear and nose normal, oropharynx normal Neck trachea midline, no thyromegaly Respiratory normal respiratory effort, lungs clear to auscultation Cardiovascular RRR, no murmur, no edema Gastrointestinal (Abdomen) normal bowel sounds, soft, nontender, no hepatosplenomegaly Skin no rashes, warm and dry Psychiatric A+Ox3, euthymic affect Results & Data Results & Data Laboratory Results . Diagnostic Findings X-rays of the right knee do show some severe osteoarthritis with joint space narrowing osteophyte formation and [id number] articulation. It is mostly involving the patellofemoral joint.. PG Care Time/CCT Total # of Minutes Spent Total Time Spent with Patient: Total time spent is greater than 50% in coordination of care (as documented) at patient's floor/unit and/or counseling patient: Coding Level of Care Code None Diagnoses Localized osteoarthritis of right knee M17.11
[~2022-12-08 07:21] MED LIST changes: -CEFAZOLIN 1000MG 1,000 MG/7.5 ML SYR IV SCH; +ORTHO JOINT MIX INFIL SCH; +ROPIVACAINE 0.5% 5 MG/ML 30 ML VIAL ONE; -ROPIVACAINE 0.5% HCL/PF 150 MG, BUPIVACAINE 0.5% MPF 30 ML, EPINEPHrine 30MG/30ML (OR U... INFIL SCH; +ceFAZolin 2000MG 2,000 MG/15 ML SYR IV SCH
[2022-12-08] MEDS ORDERED: ORTHO JOINT ANESTHETIC ONE (08:49)
[2022-12-08] MEDS ORDERED: MIDAZOLAM HCL 1 MG/ML 2ML VIAL ONE (09:00)
[2022-12-08] MEDS ORDERED: fentaNYL citrate 100 MCG/2 ML VIAL ONE (09:00)
[2022-12-08] MEDS ORDERED: ATROPINE SULFATE 0.1 MG/ML 10ML SYR IV PRN (09:13)
[2022-12-08] MEDS ORDERED: ONDANSETRON INJ 2 MG/ML 2 ML VIAL IV PRN ×2 (09:13→12:21)
[2022-12-08] MEDS ORDERED: KETOROLAC 30 MG/ML VIAL IV PRN (09:13)
[2022-12-08] MEDS ORDERED: ePHEDrine sulfate 50 MG/ML AMP IV PRN (09:13)
[2022-12-08] MEDS ORDERED: HYDROmorphone INJ 1 MG/ML SYRINGE IV PRN (09:13)
[2022-12-08] MEDS ORDERED: PHENYLEPHRINE HCL 10 MG/ML VIAL ONE (10:14)
[2022-12-08] MEDS ORDERED: PROPOFOL IV EMULSION 10 MG/ML 20 ML VIAL IV ONE (10:29)
--- NOTE | 2022-12-08 10:38 | Operative Report ---
PG Post Operative Report Pre & Post Diagnosis Operation Date: 12/08/22 09:20 Pre-Op Diagnosis: Degenerative Joint Disease Right Knee Post-Op Diagnosis: Degenerative Joint Disease Right Knee I identified the patient and participated in the time-out.: Yes Procedure Operation Date: 12/08/22 09:20 Actual Procedures p Right Total Knee Arthroplasty(Right) - William Rivera DO Surgeon William Rivera DO Batching Operator William Montenegro PA-C Estimated Blood Loss 30 Findings Consistent with Post-Op Diagnosis Specimens Right femoral and tibial bone Description of Procedure Implants used: I used a Jude Persona total knee arthroplasty system with a size 6 narrow femur, D tibia, 31 oval patella, and a size 14 medial congruent polyethylene bearing. All components were cemented in place with Biomet cement. Sabrina arrived [facility] for the above procedure. She was seen in the preoperative holding area and the operative extremity was identified and signed. She was given a preoperative antibiotic, TXA, a spinal anesthetic and an adductor nerve block. She was taken back to the operating room and laid on the table in supine position. She was given basic sedation. The operative knee was then prepped and draped in sterile fashion. A timeout was done, and the patient and the operative extremity was properly identified. A midline incision was made directly over the patella. Dissection was taken down to the extensor mechanism. A midvastus arthrotomy was used. The medial retinaculum was released and the fat pad was mostly excised. The knee was flexed and the ACL, PCL, and meniscus were removed. A drill was sent down the center of the femoral canal followed by an intramedullary jb. Off that jb a distal femoral cutting block was placed. 9 mm was resected off the distal femur at 5 of valgus. A posterior referencing AP sizing guide was then placed on the distal femur. The femur measured to be a size 6. 2 drill holes were placed in 3 of external rotation. A 4-in-1 cutting block was then impacted into place. Anterior, posterior, and chamfer cuts were then made. The proximal tibia was then exposed. An external tibial alignment guide was placed. A tibial cut guide was then anchored in place and the proximal tibia was then resected. The posterior aspect of the knee was then opened up and any additional meniscus fragments and osteophytes were removed. The tibia measured to be a size D. The tibial plate was then placed in the appropriate rotation and the tibia was drilled and punched. Trial components were then placed. I used a size 14 medial congruent polyethylene insert. The knee was brought through a full range of motion and felt to be stable. The peg holes for the femoral component were then drilled. The patella was then everted and 9 mm was resected off the posterior aspect of the patella. The patella measured to be a size 31 oval. 3 peg holes were then drilled. A trial patella was placed. The knee was once again brought through a full range of motion and felt to be stable. Trial components were then removed. The surrounding soft tissues were injected with 100 cc of an orthopedic pain control cocktail. All components were then cemented into place with Biomet cement. The final polyethylene insert was then snapped into place. Once cement was dry the tourniquet was deflated. Hemostasis was obtained. A dilute betadyne lavage was then done for 3 minutes. The joint was then irrigated with normal saline solution. The midvastus art hrotomy was then closed with #1 Vicryl suture. The skin was closed with 2-0 Vicryl, 3-0V lock suture, and tiffany. A soft compressive dressing was placed. She was then transferred to a hospital bed and taken to the postanesthesia care unit in stable condition. She tolerated the procedure well. William Montenegro PA-C, was present for the entire procedure. He was critical for patient positioning, prepping, draping, retraction exposure, wound closure and application of sterile dressing. I attest to the content of the Intraoperative Record and any orders documented therein. Any exceptions are noted below.
[2022-12-08] MEDS ORDERED: ONDANSETRON INJ 2 MG/ML 2 ML VIAL ONE (10:42)
--- NOTE | 2022-12-08 12:10 | XRay Report ---
XR knee RT 1 or 2V routine CLINICAL HISTORY: Surgical Post Op TECHNIQUE: 2 views of the right knee were obtained. Comparison: Comparison is made to knee radiographs 11/07/2019 FINDINGS: Patient is status post total knee arthroplasty with expected postsurgical changes including soft tiss ue swelling and subcutaneous emphysema. No periarticular lucency or hardware fracture is seen. Joint spaces are well-preserved. No joint effusion is seen. No soft tissue abnormality is seen. IMPRESSION: Expected postoperative appearance status post placement of total knee arthroplasty. ACT 112: Negative or not required by law. Electronically signed by: Nick Piper M.D. 12/08/2022 12:08 PM
[2022-12-08] MEDS ORDERED: HYDROmorphone INJ 0.5 MG/0.5 ML SYR IV PRN (12:21)
[2022-12-08] MEDS ORDERED: METOCLOPRAMIDE HCL INJ 5 MG/ML 2 ML VIAL IV PRN (12:21)
[2022-12-08] MEDS ORDERED: MAGNESIUM HYDROXIDE SUSP 30 ML UDC PO PRN (12:21)
[2022-12-08] MEDS ORDERED: bisacodyL 10 MG SUPP PR PRN (12:21)
[2022-12-08] MEDS ORDERED: NALOXONE HCL 0.4 MG/1 ML VIAL/CARP IV PRN (12:21)
[2022-12-08] MEDS ORDERED: SODIUM CHLORIDE 0.9% 1000ML 1,000 ML IV SCH (12:21)
[2022-12-08] MEDS ORDERED: CLOBETASOL PROPIONATE 0.05% OINT 15 GM TUBE EXT PRN (12:28)
[2022-12-08] MEDS: KETOROLAC TROMETHAMINE 15 MG/ML VIAL IV SCH ×3 (12:42→23:19)
--- NOTE | 2022-12-08 13:00 | Anesthesiology Progress Note ---
Date of Service December 08, 2022 Anesthesia Post Procedure Vital Signs Vital Signs: Temp Pulse Pulse Resp BP Pulse Ox O2 Del Method 12/08/22 12:40 36.4 C L 65 16 103/61 97 Room Air 12/08/22 12:10 36.5 C 64 16 108/64 96 Room Air 12/08/22 12:00 36.6 C 65 14 101/57 L 95 Room Air 12/08/22 11:50 63 13 97/54 L 94 Room Air 12/08/22 11:40 67 16 102/57 L 94 Room Air 12/08/22 11:20 68 14 103/57 L 96 Room Air 12/08/22 11:30 66 10 L 107/59 L 95 Room Air 12/08/22 11:10 64 13 106/60 100 Oxymask 12/08/22 11:01 36.5 C 74 14 101/58 L 99 Oxymask 12/08/22 07:58 36.6 C 70 18 139/79 98 Room Air O2 Flow Rate 12/08/22 12:40 12/08/22 12:10 12/08/22 12:00 12/08/22 11:50 12/08/22 11:40 12/08/22 11:20 12/08/22 11:30 12/08/22 11:10 4 12/08/22 11:01 4 12/08/22 07:58 Transfer of Care Handoff Completed per policy Notes Mental Status: alert / awake / arousable Patient Amnestic to Procedure: Yes Nausea / Vomiting: adequately controlled Pain: adequately controlled Airway Patency, RR, SpO2: stable & adequate BP & HR: stable & adequate Hydration State: stable & adequate Anesthetic Complications: no major complications apparent
[2022-12-08] MEDS: ACETAMINOPHEN 500 MG TAB PO SCH ×2 (14:32→20:55)
[2022-12-08] MEDS: ceFAZolin 2000MG 2,000 MG/15 ML SYR IV SCH ×2 (17:49→23:18)
[2022-12-08] MEDS: oxyCODONE HCL IR 5 MG TAB (IMMEDIATE RELEASE) PO PRN ×2 (19:03→23:18)
[2022-12-08] MEDS: ASPIRIN 81 MG ECTAB PO SCH (20:55)
[2022-12-08] MEDS: DOCUSATE SODIUM 100 MG CAP PO SCH (20:56)
[2022-12-08] MEDS ORDERED: SENNA 8.6 MG TAB PO SCH (21:00)
[2022-12-09] MEDS: KETOROLAC TROMETHAMINE 15 MG/ML VIAL IV SCH ×2 (06:22→12:01)
[2022-12-09] MEDS: ACETAMINOPHEN 500 MG TAB PO SCH (06:22)
[2022-12-09] MEDS ORDERED: LEVOTHYROXINE SODIUM 88 MCG TABLET PO SCH (06:30)
[2022-12-09] MEDS ORDERED: dexAMETHasone 4 MG TAB PO SCH (08:00)
[2022-12-09] MEDS: oxyCODONE HCL IR 5 MG TAB (IMMEDIATE RELEASE) PO PRN (08:22)
[2022-12-09] MEDS: ASPIRIN 81 MG ECTAB PO SCH (08:23)
[2022-12-09] MEDS: DOCUSATE SODIUM 100 MG CAP PO SCH (08:23)
[2022-12-09] MEDS ORDERED: MULTIVITAMIN TAB PO SCH (09:00)
--- NOTE | 2022-12-09 11:18 | Orthopedic Progress Note ---
Date of Service December 09, 2022 Assessment & Plan (1) Status post right knee replacement: Overall she is doing very well. She is not in much pain in the right knee. She will be seen by physical therapy today for ambulation and range of motion exercises. She is on aspirin for DVT prophylaxis. She can be discharged home later today. She will follow-up with orthopedics in 2 weeks. Kisha Bennett was seen and examined at bedside this morning. Overall she is doing very well. She is not having much pain in the right knee. She has been up and ambulating to the bathroom. She has no complaints.. Review of Systems All systems reviewed & are unremarkable except as noted in HPI & below. Physical Exam On physical examination of the right knee, the dressing is clean and dry. Her leg is out in full extension. She has active dorsiflexion plantarflexion of her right ankle.. Results & Data Results & Data Laboratory Results . Diagnostic Findings Postoperative x-rays of the right knee show the prosthesis to be in anatomic alignment without any evidence of fracture, dislocation, or loosening.. PG Care Time/CCT Total # of Minutes Spent Total Time Spent with Patient: Total time spent is greater than 50% in coordination of care (as documented) at patient's floor/unit and/or counseling patient: Coding Level of Care Code 55117 Post Operative Follow-Up Diagnoses Status post right knee replacement Z96.651
--- NOTE | 2022-12-09 11:22 | Discharge Summary ---
Date of Service December 09, 2022 Admission HPI (Per Admitting) Sabrina is a pleasant 72-year-old female, who has been dealing with chronic worsening bilateral knee pain. The right is worse than left. It hurts when she walks long distance. It hurts when she goes up and down stairs. She has a lot of anterior knee pain. She is really struggling with it. She states that she has to go downstairs backwards. She has done physical therapy. She has had injections. She is taking antiinflammatories, all without relief. After failing conservative treatment, she has elected to proceed with a right total knee arthroplasty. Admission Exam (Per Admitting) On physical examination of the right knee, she has good range of motion of 0 to 120 degrees. No instability. Pain over the joint lines and in the patellofemoral region.. Principal Diagnosis Same as "Discharge Diagnosis" noted below under Discharge Instructions. Discharge Exam On physical examination of the right knee, the dressing is clean and dry. Her leg is out in full extension. She has active dorsiflexion plantarflexion of her right ankle.. Discharge Data Procedures Performed Operation Date: 12/08/22 09:20 Actual Procedures p Right Total Knee Arthroplasty(Right) - William Rivera DO Ordered Studies 12/08/22 05:00 US - OR guided needle placemen Routine Hospital Course (1) Status post right knee replacement: On December 08, 2022 Sabrina arrived at [facility] and underwent a right knee replacement without complication. She had a spinal anesthetic. Postoperatively she was started on aspirin for DVT prophylaxis and transferred to the general orthopedic floors. Her hospital course was uneventful. On postop day #1, her vital signs were stable and her pain was well controlled. She was able to participate well with physical therapy doing ambulation and range of motion exercises. She was then discharged home. She will follow-up with orthopedics in 2 weeks. PG Care Time/CCT Total # of Minutes Spent Total Time Spent with Patient: Total time spent is greater than 50% in coordination of care (as documented) at patient's floor/unit and/or counseling patient: Discharge Plan Discharge Items Patient Disposition: Home - Home Health Services Reason For Visit: DJD Right Knee Discharge Diagnosis: Right knee replacement Activity: Per Instructions section Non-emergency contact: Surgeon Call non-emergency contact if: your wound has increased redness and your wound h as increased drainage Follow-up/Referrals: Tahir Kelley, [Primary Care Provider] - Diet: Regular Addtl Attending Provider Instructions: Activity and Therapy Recommendations: * If you are using [facility] then therapy will be provided at your home until they feel you have accomplished all of your goals. * If you are using [facility] then Physical Therapy will be provided until they feel you are ready to start Outpatient Physical Therapy. * If you are not using home therapy then Outpatient Physical Therapy should start about 3-5 days from your day of surgery. Therapy will last about 6-10 weeks * It is important not to put a pillow under your knee when you are relaxing or sleeping. It is just as important to make sure you are getting your knee perfectly straight as it is to regain your knee bend. * You were shown a series of exercises in the hospital. Do these exercises three times each day including the exercises you were shown in physical therapy. * Get up and walk several times each day. For the first four weeks, try not to stand or walk for more than one hour at a time. If you do stand or walk for more than one hour, you will not hurt anything, but your leg will likely swell. * As you feel comfortable, you may change from the walker or crutches to a cane and then to independent walking. Medications: * Narcotic You will likely be sent home from the hospital with a prescription for the narcotic pain medication that worked best throughout your stay. * Aspirin Most patients will be required to take Aspirin 81mg twice a day for 6 weeks after surgery. This is obtained [id number] and a prescription is not necessary. * Other medications may be prescribed for specific circumstances. If you have any questions, please call the office at . * Resume previous home medications unless otherwise instructed TEDs/Elastic Stockings: The white elastic stockings help limit swelling and prevent blood clots from forming in your legs.~ The more you wear them, the more they work. Wear them for six weeks. Dressing Care: The dressing can be changed after physical therapy on postop day #1. Daily dry dressing changes for a few days, especially if the incision is still draining some. If the incision is not draining then you may leave the tiffany open to air. If there is a little bit of drainage or if the tiffany are getting stuck on your clothing then cover the incision with a dry dressing. The tiffany will be removed at your 2 week follow-up appointment. Showering: You may shower 5 days from the day of surgery as long as the incision is no longer draining. You may shower with the tiffany exposed. Let soapy water run over the tiffany and pat them dry. Do not scrub or soak the incision. Things To Watch For: * Drainage from the incision site that occurs more than one week after your surgery. * Increased redness at the incision site. * Fever above 102 degrees Fahrenheit. * Unusual chest pain or shortness of breath. * Call [facility] at with any of the above problems Follow-Up Visit: Follow-up with Dr. Rivera's PA (William Montenegro) 2-3 weeks after your day of surgery. He will remove your tiffany and answer any questions. If you have any additional questions or concerns, Dr Rivera is usually in the office at the same time and will be available An appointment was probably scheduled when you signed-up for surgery in the office. If you have any questions call Office Instructions: More detailed instructions as well as Frequently Asked Questions were provided in a folder by our office when you signed-up for surgery. Please review these instructions when you get home. If you have any further questions or concerns, please feel free to call the office at [phone] Pending Studies at Discharge: No Stand-Alone Forms: My [facility], Smoking Cessation Medications and DC Order Prescriptions: New aspirin 81 mg Tablet,Delayed Release (Dr/Ec) 81 mg PO BID 42 Days Qty: 84 0RF oxycodone-acetaminophen 5-325 mg tablet 1 tab PO Q6H PRN (Reason: pain) Qty: 30 0RF Continued clobetasol 0.05 % cream 1 applic TOP .COMPLEX PRN (Reason: Skin Irritation) Qty: 30 1RF Rx Instructions: 1 applic topical apply to affected areas twice weekly or as needed PRN; amoxicillin 500 mg capsule 2,000 mg PO ONCE Qty: 8 2RF Rx Instructions: TAKE 4 TABLETS ONCE 1 HOUR PRIOR TO DENTAL APPOINTMENT lutein 10 mg tablet 20 mg PO PM cholecalciferol (vitamin D3) 50 mcg (2,000 unit) capsule 2,000 unit PO PM levothyroxine 88 mcg tablet 88 mcg PO QAM ibuprofen 400 mg Tablet 400 mg PO TID PRN (Reason: Pain) alendronate 70 mg Tablet 70 mg PO WK cyanocobalamin (vitamin B-12) 500 mcg Tablet 500 mcg PO PM Admission Data Admit Date/Time: 12/08/22 11:02 Attending Provider: William Rivera Admit Provider: William Rivera Primary Care Provider: Tahir Kelley Other Interventions: Discharge Summary Assessment (RN) Last Done: 12/09/22 09:00
[2022-12-10] MEDS ORDERED: ALENDRONATE SODIUM 70 MG TAB PO SCH (06:30)
== END 2022-12-09 12:50 | disposition home health service (06) ==
LOC: 3E 07:21 → ASU 07:21